=== PATIENT | female | born 1950 | race Caucasian/White ===

== ENCOUNTER → 2016-05-29 | Outpatient (CLI) | payer MEDICARE, BC ==
[2016-05-29 10:24] LABS: ALT 25 U/L (9-52); AST 20 U/L (14-36); Alkaline Phosphatase 74 U/L (38-126); Anion Gap 12 mmol/L; Blood Urea Nitrogen 18 mg/dL (7-17); Calcium 11.4 mg/dL (8.4-10.2); Carbon Dioxide 28 mmol/L (22-30); Chloride 102 mmol/L (98-107); Glucose 94 mg/dL (74-99); Non-African American GFR(MDRD) >60 (>60 ml/min/1.73 sqM); Potassium 5.2 mmol/L (3.5-5.1); Sodium 142 mmol/L (137-145); Total Bilirubin 0.7 mg/dL (0.2-1.3); Total Protein 7.3 g/dL (6.3-8.2)
== END | disposition home or self-care (01) ==
LOC: LABWHC1 09:11
PROVIDERS: ATTEND Internal Medicine Endocrinology, Diabetes & Metabolism
DX: E21.0 Primary hyperparathyroidism (principal)
CPT/HCPCS: 36415; 80053; 82306; 83970

== ENCOUNTER → 2016-07-17 | Outpatient (CLI) | payer MEDICARE, BC ==
--- NOTE | 2016-07-17 11:18 | US ---
EXAMINATION TYPE: US thyroid st tissue head/neck DATE OF EXAM: 07/17/2016 10:32 AM COMPARISON: 10/16/2010 thyroid ultrasound. CLINICAL HISTORY: E04.9 Goiter. GLAND SIZE: Right Lobe: 4.5 x 1.7 x 1.7 cm Overall Parenchyma: homogenous Left Lobe: 3.7 x 1.2 x 1.5 cm Overall Parenchyma: homogeneous Isthmus Thickness: 0.2 cm NODULES RIGHT: # of nodules measured on right: 1 1. 1.1 X 0.5 x 0.9 cm anechoic cystic nodule at the lower pole with well-defined margins; . This n odule is wider than tall and shows no intranodular vascularity. Prior size: 0.9 x 0.5 x 0.5 cm LEFT: # of nodules measured on left: 0 ISTHMUS: # of nodules measured in the isthmus: 0 Bilateral neck scanned, no evidence of lymphadenopathy. One nodule on right lower lobe as described above A 1.1 cm cystic nodule right thyroid lobe is stable. IMPRESSION: There is stable 1.1 cm cystic nodule right thyroid lobe. No new solid or cystic nodules are evident.
== END | disposition home or self-care (01) ==
LOC: RADUSWWP 10:14
PROVIDERS: ATTEND Internal Medicine Endocrinology, Diabetes & Metabolism
DX: E04.1 Nontoxic single thyroid nodule (principal)
CPT/HCPCS: 76536

== ENCOUNTER → 2017-01-25 | Outpatient (CLI) | payer MEDICARE, BC ==
--- NOTE | 2017-01-25 10:33 | MM ---
Reason for exam: additional evaluation requested from abnormal screening. Last mammogram was performed less than 1 month ago. History: Patient is postmenopausal. Family history of premenopausal breast cancer in paternal aunt at age 40 and premenopausal breast cancer in mother at age 40. Took hormonal contraceptives for 8 years beginning at age 20. Physical Findings: Nurse did not find any significant physical abnormalities on exam. MG 3D Work Up W/Cad LT LM, spot compression MLO, and spot compression CC view(s) were taken of the left breast. Prior study comparison: January 19, 2017, bilateral MG 3d screening mammo w/cad. January 14, 2016, bilateral MG 3d screening mammo w/cad. Finding improved. A 6 month follow up recommended. These results were verbally communicated with the patient and result sheet given to the patient on 01/25/17. ASSESSMENT: Probably benign, BI-RAD 3 RECOMMENDATION: Follow-up diagnostic mammogram of the left breast in 6 months.
--- NOTE | 2017-01-25 10:34 | USB ---
Reason for exam: additional evaluation requested from abnormal screening. History: Patient is postmenopausal. Family history of premenopausal breast cancer in paternal aunt at age 40 and premenopausal breast cancer in mother at age 40. Took hormonal contraceptives for 8 years beginning at age 20. US Breast Workup Limited LT Left breast ultrasound demonstrates no cystic or solid lesion seen. No ultrasound abnormality seen. Recommend additional views. These results were verbally communicated with the patient and result sheet given to the patient on 01/25/17. ASSESSMENT: Incomplete: need additional imaging evaluation, BI-RAD 0 RECOMMENDATION: Special view mammogram of the left breast.
== END | disposition home or self-care (01) ==
LOC: RADMAMWWP 08:55
PROVIDERS: ATTEND Obstetrics & Gynecology
DX: R92.8 Other abnormal and inconclusive findings on diagnostic imaging of breast (principal)
CPT/HCPCS: 76642; G0206; G0279

== ENCOUNTER → 2017-08-24 | Outpatient (CLI) | payer MEDICARE, BC ==
--- NOTE | 2017-08-24 10:44 | MM ---
Reason for exam: additional evaluation requested from prior study. Last mammogram was performed 7 months ago. History: Patient is postmenopausal. Family history of premenopausal breast cancer in paternal aunt at age 40 and premenopausal breast cancer in mother at age 40. Took hormonal contraceptives for 8 years beginning at age 20. Physical Findings: Nurse did not find any significant physical abnormalities on exam. MG 3D Diag Mammo W/Cad LT CC and MLO view(s) were taken of the left breast. Prior study comparison: January 25, 2017, left breast MG 3d work up w/cad LT. January 19, 2017, bilateral MG 3d screening mammo w/cad. No significant new findings when compared with previous films. These results were verbally communicated with the patient and result sheet given to the patient on 08/24/17. ASSESSMENT: Benign, BI-RAD 2 RECOMMENDATION: Return to routine screening mammogram schedule for both breasts. Back on schedule.
== END | disposition home or self-care (01) ==
LOC: RADMAMWWP 08:55
PROVIDERS: ATTEND Obstetrics & Gynecology
DX: R92.8 Other abnormal and inconclusive findings on diagnostic imaging of breast (principal)
CPT/HCPCS: 77065; G0279; 77061

== ENCOUNTER → 2018-01-25 | Outpatient (CLI) | payer MEDICARE, BC ==
[2018-01-25 09:51] VITALS: BP 134/85; PULSE 106; TEMP 98.6; BMI 31.4
--- NOTE | 2018-01-25 10:21 | P.HPOB ---
History of Present Illness H&P Date: 01/25/18 Chief Complaint: The patient is here for her routine gynecologic exam and mammogram. This is a 67-year-old with an LMP of 2003. The patient is without gynecologic complaints. Review of Systems She is getting 6 pounds over the last year. She denies respiratory, cardiac and G.I. problems. She denies maltreatment or problems with falling. : occasional urinary leakage if she coughs hard. Past Medical History Past Medical History: GERD/Reflux, Hyperlipidemia, Hypertension, Thyroid Disorder Additional Past Medical History / Comment(s): Hypercalcemia with parathyroid problems. History of osteopenia. 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 She did have a conization of the cervix in the late 70s. History of Any Multi-Drug Resistant Organisms: None Reported Past Surgical History: Orthopedic Surgery, Tonsillectomy Additional Past Surgical History / Comment(s): right knee, D&C. Cervical conization in the 1970s. Colonoscopy 2013(4th). Past Psychological History: No Psychological Hx Reported Smoking Status: Never smoker Past Alcohol Use History: Rare (10 per year) Past Drug Use History: None Reported Additional History: She has been since 1969 and is retired. She spends part of the winter in [place]. - Past Family History Father Family Medical History: Myocardial Infarction ([place]) Additional Family Medical History / Comment(s): The paternal aunt had uterine cancer. Mother Family Medical History: Cancer (Breast cancer and colon cancer) Medications and Allergies Home Medications Medication Instructions Recorded Confirmed Type Lisinopril-Hctz 10-12.5 mg 1 each PO DAILY 11/24/13 01/25/18 History [Zestoretic 10-12.5] Omeprazole [PriLOSEC] 20 mg PO AC-BID 11/24/13 01/25/18 History Pravastatin Sodium [Pravachol] 40 mg PO DIRECTED 11/24/13 01/25/18 History Calcium Carbonate/Vitamin D3 500 tab PO DAILY 01/25/18 01/25/18 History [Calcium 500-Vit D3 200 Tablet] Allergies Allergy/AdvReac Type Severity Reaction Status Date / Time Penicillins Allergy Unknown Rash/Hives Verified 01/25/18 09:46 Exam Vital Signs Temp Pulse BP 01/25/18 09:46 98.6 F 106 H 134/85 Intake and Output 01/24/18 01/25/18 01/25/18 22:59 06:59 14:59 Other: Weight 75.296 kg Height 5'1", weight 166 pounds, BMI 31.4. This is a well-developed well-nourished white female who is alert and oriented times 3 in no acute distress. HEENT: Within normal limits. NECK: Supple without mass or thyromegaly. CHEST AND LUNGS: Clear to auscultation. HEART: Regular rate and rhythm. BREASTS: Are without mass or discharge. AXILLARY EXAM: Negative for adenopathy. BACK: Negative for CVA tenderness. ABDOMEN: Soft, nontender, without palpable masses. PELVIC EXAM: Normal external genitalia with moderate atrophy. Vagina appear normal with moderate atrophy. The cervix is moderately atrophic and is fairly flush with the back of the vagina, consistent with her previous colonization. There is no unusual discharge. There is no evidence of prolapse. The uterus is midposition, nongravid size and nontender. There are no palpable adnexal masses or tenderness. There is a small amount of urethral mobility with cough and Valsalva. There is no significant cystocele. No urinary leakage was demonstrated. RECTAL EXAM: rectovaginal exam is negative for mass or tenderness and is negative for occult blood. EXTREMITIES: Nontender. IMPRESSION: 1. 67-year-old menopausal female with normal gynecologic exam. 2. History of osteopenia. PLAN: 1. Pap smear was deferred since she had a normal one last year. 2. Self breast awareness was discussed with the patient. 3. Screening mammogram will be done today. 4. Osteoporosis prevention was discussed. We will plan on repeating bone density testing in one year. 5. She did receive or flu shot this fall. 6. She will return in one year.
--- NOTE | 2018-01-25 13:05 | MM ---
Reason for exam: screening (asymptomatic). Last mammogram was performed 5 months ago. History: Patient is postmenopausal. Family history of premenopausal breast cancer in paternal aunt at age 40 and premenopausal breast cancer in mother at age 40. Took hormonal contraceptives for 8 years beginning at age 20. Physical Findings: A clinical breast exam by your physician is recommended on an annual basis and results should be correlated with mammographic findings. MG 3D Screening Mammo W/Cad Bilateral CC and MLO view(s) were taken. Prior study comparison: August 24, 2017, left breast MG 3d diag mammo w/cad LT. January 25, 2017, left breast MG 3d work up w/cad LT. The breast tissue is heterogeneously dense. This may lower the sensitivity of mammography. There are benign appearing round calcifications bilaterally. There is no discrete abnormality. ASSESSMENT: Benign, BI-RAD 2 RECOMMENDATION: Routine screening mammogram of both breasts in 1 year.
== END | disposition home or self-care (01) ==
LOC: WWCWWP 09:14
PROVIDERS: ATTEND Obstetrics & Gynecology
DX: Z12.31 Encounter for screening mammogram for malignant neoplasm of breast (principal)
CPT/HCPCS: 77063; 77067

== ENCOUNTER → 2018-10-18 | Outpatient (CLI) | payer MEDICARE, BC ==
--- NOTE | 2018-10-18 10:55 | US ---
EXAMINATION TYPE: US thyroid st tissue head/neck DATE OF EXAM: 10/18/2018 COMPARISON: 07/17/2016 CLINICAL HISTORY: E04.1 Nontoxic thyroid nodule. follow up exam GLAND SIZE: Right Lobe: 4.2 x 1.1 x 1.8 cm Overall Parenchyma: homogenous Left Lobe: 4.2 x 1.4 x 1.5 cm Overall Parenchyma: homogeneous Isthmus Thickness: 0.2 cm NODULES RIGHT: # of nodules measured on right: 1 1. 1.1 X 0.7 x 1.4 cm cystic nodule at the lower pole with well-defined margins; present with micro calcifications. This nodule is wider than tall and shows no intranodular vascularity. Prior size: 1.1 x 0.5 x 0.9 cm LEFT: # of nodules measured on left: 0 ISTHMUS: # of nodules measured in the isthmus: 0 Bilateral neck scanned, no evidence of lymphadenopathy. IMPRESSION: Minimal interval growth of a solitary right thyroid nodule measuring up to 1.4 cm. Continued surveill ance is recommended.
== END | disposition home or self-care (01) ==
LOC: RADUSWWP 10:10
PROVIDERS: ATTEND Internal Medicine Endocrinology, Diabetes & Metabolism
DX: E04.1 Nontoxic single thyroid nodule (principal)
CPT/HCPCS: 76536

== ENCOUNTER → 2019-02-15 | Outpatient (CLI) | payer MEDICARE, BC ==
[2019-02-15 11:30] VITALS: BP 166/98; PULSE 98; RESP 18; TEMP 98.5
--- NOTE | 2019-02-15 12:13 | P.HPOB ---
History of Present Illness H&P Date: 02/15/19 Chief Complaint: The patient is here for her routine gynecologic exam and ma mmogram. This is a 68-year-old with an LMP of 2003. The patient is without gynecologic complaints and denies any postmenopausal bleeding. Review of Systems She has gained about 3 pounds over the last year. She denies respiratory, cardiac and G.I. problems. She denies maltreatment or problems with falling. : she occasionally has small leakage with coughing and sneezing. Past Medical History Past Medical History: GERD/Reflux, Hyperlipidemia, Hypertension, Thyroid Disorder Additional Past Medical History / Comment(s): Hypercalcemia with parathyroid problems. History of osteopenia. 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 She did have a conization of the cervix in the late 70s. History of Any Multi-Drug Resistant Organisms: None Reported Past Surgical History: Orthopedic Surgery, Tonsillectomy Additional Past Surgical History / Comment(s): right knee, D&C. Cervical conization in the . Colonoscopy 2013(4th). Past Psychological History: No Psychological Hx Reported Smoking Status: Never smoker Past Alcohol Use History: Rare (8 per year) Past Drug Use History: None Reported Additional History: She has been since 1969 and is retired. She spends part of the winter in [place] staying with her daughter. - Past Family History Father Family Medical History: Myocardial Infarction ([place]) Additional Family Medical History / Comment(s): The paternal aunt had uterine cancer. Mother Family Medical History: Cancer Additional Family Medical History / Comment(s): Breast and colon cancer. Medications and Allergies Home Medications Medication Instructions Recorded Confirmed Type Lisinopril-Hctz 10-12.5 mg 30 mg PO DAILY 11/24/13 02/15/19 History [Zestoretic 10-12.5] Omeprazole [PriLOSEC] 20 mg PO DAILY 11/24/13 02/15/19 History Pravastatin Sodium [Pravachol] 40 mg PO DIRECTED 11/24/13 02/15/19 History Calcium Carbonate/Vitamin D3 500 tab PO HS 01/25/18 02/15/19 History [Calcium 500-Vit D3 200 Tablet] Allergies Allergy/AdvReac Type Severity Reaction Status Date / Time Penicillins Allergy Unknown Rash/Hives Verified 02/15/19 11:29 Exam Vital Signs Temp Pulse Resp BP Pulse Ox 02/15/19 11:24 98.5 F 98 18 166/98 95 Intake and Output 02/14/19 02/15/19 02/15/19 22:59 06:59 14:59 Other: Weight 76.657 kg Height 5 feet 1 inch, weight 169 pounds, BMI 31.9. This is a well-developed well-nourished white female who is alert and oriented times 3 in no acute distress. HEENT: Within normal limits. NECK: Supple without mass or thyromegaly. CHEST AND LUNGS: Clear to auscultation. HEART: Regular rate and rhythm. BREASTS: Are without mass or discharge. AXILLARY EXAM: Negative for adenopathy. BACK: Negative for CVA tenderness. ABDOMEN: Soft, nontender, without palpable masses. PELVIC EXAM: Normal external genitalia with mild to moderate atrophy. Cervix and vagina appear normal with moderate atrophy. The cervix is somewhat flush with the back of the vagina consistent with her previous conization. There is no unusual discharge. There is no evidence of prolapse. The uterus is midposition, nongravid size and nontender. There are no palpable adnexal masses or tenderness. RECTAL EXAM: Rectovaginal exam is negative for mass or tenderness and is negative for occult blood. EXTREMITIES: Nontender. IMPRESSION: 1. 68-year-old menopausal female with normal gynecologic exam. 2. History of osteopenia. 3. Elevated blood pressure with history of chronic hypertension on medication for this. PLAN: 1. Pap smear was performed. If this is negative, we will consider discontinuing it because of her low risk nature. 2. Self breast awareness was discussed with the patient. 3. Screening mammogram will be done today. 4. The patient was advised to check her own blood pressure at home since she has a blood pressure cuff. I have recommended that she do this daily and keep a log of her blood pressures. She was instructed to follow-up with Dr. Mccurdy for blood pressure elevations. 5. Osteoporosis prevention was discussed. I have stressed the importance of adequate calcium, vitamin D and regular exercise. Recommended amounts of calcium and vitamin D were also discussed. I have recommended repeating bone de nsity testing since her last one was more than 2 years ago. The order slip was given to the patient for this. 6. The patient was advised to return in 1-2 years for her well woman examination.
--- NOTE | 2019-02-17 11:45 | MM ---
Reason for exam: screening (asymptomatic). Last mammogram was performed 1 year and 1 month ago. History: Patient is postmenopausal. Family history of premenopausal breast cancer in paternal aunt at age 40 and premenopausal breast cancer in mother at age 40. Took hormonal contraceptives for 8 years beginning at age 20. Physical Findings: A clinical breast exam by your physician is recommended on an annual basis and results should be correlated with mammographic findings. MG 3D Screening Mammo W/Cad Bilateral CC and MLO view(s) were taken. XCCL view(s) were taken of the left breast. Prior study comparison: January 25, 2018, bilateral MG 3d screening mammo w/cad. August 24, 2017, left breast MG 3d diag mammo w/cad LT. The breast tissue is heterogeneously dense. This may lower the sensitivity of mammography. There is no discrete abnormality. No significant changes when compared with prior studies. ASSESSMENT: Negative, BI-RAD 1 RECOMMENDATION: Routine screening mammogram of both breasts in 1 year.
--- NOTE | 2019-02-22 09:20 | P.PN ---
Progress Note - Text Progress Note Date: 02/22/19 OUTPATIENT FOLLOW-UP NOTE TEST(S)/RESULTS: test results from 02/15/2019 include negative Pap smear and benign mammogram. METHOD OF NOTIFICATION: the patient was notified by phone. PATIENT COMMENTS: the patient is happy to hear these results. DIAGNOSIS: negative Pap smear and benign mammogram. DISCUSSION: She was reminded to have a bone density test done and she was given a slip for this. PLAN: The patient was advised to return in 1-2 years for her well woman examination.
== END | disposition home or self-care (01) ==
LOC: WWCWWP 11:12
PROVIDERS: ATTEND Obstetrics & Gynecology
DX: Z12.31 Encounter for screening mammogram for malignant neoplasm of breast (principal)
CPT/HCPCS: 77063; 77067

== ENCOUNTER → 2019-05-29 | Outpatient (CLI) | payer MEDICARE, BC ==
--- NOTE | 2019-05-29 12:02 | US ---
EXAMINATION TYPE: US thyroid st tissue head/neck DATE OF EXAM: 05/29/2019 COMPARISON: US 2019 CLINICAL HISTORY: E04.1 NONTOXIC SINGLE THYROID NODULE. Follow up thyroid nodule GLAND SIZE: Right Lobe: 4.4 x 1.5 x 1.6 cm Overall Parenchyma: homogenous Left Lobe: 4.2 x 1.2 x 1.4 cm Overall Parenchyma: homogeneous Isthmus Thickness: 0.2 cm NODULES RIGHT: # of nodules measured on right: 0 1. cystic nodule seen on previous ultrasound not seen on today's exam LEFT: # of nodules measured on left: 1 1. 0.5 X 0.3 x 0.4 cm hypoechoic solid nodule at the lateral mid pole with well-defined margins. Th is nodule is wider than tall and shows intranodular vascularity. Prior size: no previous ISTHMUS: # of nodules measured in the isthmus: 0 Bilateral neck scanned, no evidence of lymphadenopathy. IMPRESSION: The previously seen right thyroid nodule is not identified on today's exam however a new left thyroid nodule is seen that is subcentimeter and too small for fine-needle aspiration at this ti or. Follow-up thyroid ultrasound is recommended in 12 months.
== END | disposition home or self-care (01) ==
LOC: RADUSWWP 10:52
PROVIDERS: ATTEND Internal Medicine Endocrinology, Diabetes & Metabolism
DX: E04.1 Nontoxic single thyroid nodule (principal)
CPT/HCPCS: 76536

== ENCOUNTER → 2020-08-28 | Outpatient (CLI) | payer MEDICARE, BC ==
[2020-08-28 08:17] VITALS: BP 171/115; PULSE 81; RESP 18; TEMP 98.1
--- NOTE | 2020-08-28 09:00 | P.HPOB ---
History of Present Illness H&P Date: 08/28/20 Chief Complaint: The patient is here for her routine gynecologic exam. This is a 69-year-old 012 with an LMP of 2003. The patient is without gynecologic complaints. Review of Systems She has lost about 5 pounds over the past year. She denies respiratory, cardiac and G.I. problems. She denies maltreatment or problems with falling. : she denies any significant problems with urinary leakage. Past Medical History Past Medical History: GERD/Reflux, Hyperlipidemia, Hypertension, Thyroid Disorder Additional Past Medical History / Comment(s): Hypercalcemia with parathyroid problems. History of osteopenia. 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 She did have a conization of the cervix in the late 70s. History of Any Multi-Drug Resistant Organisms: None Reported Past Surgical History: Orthopedic Surgery, Tonsillectomy Additional Past Surgical History / Comment(s): right knee, D&C. Cervical conization in the . Colonoscopy 2013(4th). Past Psychological History: No Psychological Hx Reported Smoking Status: Never smoker Past Alcohol Use History: Occasional (3 per month) Past Drug Use History: None Reported Additional History: She has been since 1969 and is retired. She goes to [place] each year to visit her daughter. - Past Family History Father Family Medical History: Myocardial Infarction ([place]) Additional Family Medical History / Comment(s): The paternal aunt had uterine cancer. Mother Family Medical History: Cancer Additional Family Medical History / Comment(s): Breast and colon cancer. Medications and Allergies Home Medications Medication Instructions Recorded Confirmed Type Lisinopril-Hctz 10-12.5 mg 40 mg PO DAILY 11/24/13 08/28/20 History [Zestoretic 10-12.5] Omeprazole [PriLOSEC] 20 mg PO DAILY 11/24/13 08/28/20 History Pravastatin Sodium [Pravachol] 40 mg PO HS 11/24/13 08/28/20 History Calcium Carbonate/Vitamin D3 500 tab PO HS 01/25/18 08/28/20 History [Calcium 500-Vit D3 200 Tablet] Metoprolol Succinate [Toprol XL] 25 mg PO DAILY 08/28/20 08/28/20 History Allergies Allergy/AdvReac Type Severity Reaction Status Date / Time Penicillins Allergy Unknown Rash/Hives Verified 08/28/20 08:07 Exam Vital Signs Temp Pulse Resp BP Pulse Ox 08/28/20 08:10 98.1 F 81 18 171/115 96 Intake and Output 08/27/20 08/28/20 08/28/20 22:59 06:59 14:59 Other: Weight 74.389 kg Repeat blood pressure was 162/88 in the left arm. Height 5 feet 2 inches, weight 164 pounds, BMI 30.0. This is a well-developed well-nourished white female who is alert and oriented times 3 in no acute distress. HEENT: Within normal limits. NECK: Supple without mass or thyromegaly. CHEST AND LUNGS: Clear to auscultation. HEART: Regular rate and rhythm. BREASTS: Are without mass or discharge. AXILLARY EXAM: Negative for adenopathy. BACK: Negative for CVA tenderness. ABDOMEN: Soft, nontender, without palpable masses. PELVIC EXAM: Normal external genitalia with mild to moderate atrophy. Cervix and vagina appear normal with mild to moderate atrophy. Cervix is atrophic and fairly flush with the vaginal wall consistent with her previous conization. There is no unusual discharge. There is no evidence of prolapse. The uterus is midposition, nongravid size and nontender. There are no palpable adnexal masses or tenderness. RECTAL EXAM: Rectovaginal exam is negative for mass or tenderness and is negative for occult blood. EXTREMITIES: Nontender. IMPRESSION: 1. 69-year-old menopausal female with normal gynecologic exam. 2. History of osteopenia. 3. Elevated blood pressure with history of chronic hypertension. The patient has not taken her blood pressure medicine this morning. PLAN: 1. Pap smears have been discontinued. She has not had cervical dysplasia within the last 20 years and has been adequately screened. 2. Self breast awareness was discussed with the patient. 3. Screening mammogram is scheduled for 09/11/2020 and the order slip was given to the patient for this. 4. Osteoporosis prevention was discussed. I have stressed the importance of adequate calcium, vitamin D and regular exercise. Recommended amounts of calcium and vitamin D were also discussed. Her last bone density test was done in 2016 and she is due for this. She is scheduled for a bone density test on 0 09/11/2020. The order slip was given to the patient for this. 5. I have recommended that she take her blood pressure medication as soon as possible today. I have recommended that she follow-up with Dr. Mccurdy regarding blood pressure elevations and I have also recommended that she check her own blood pressure at home on a regular basis since she does have a blood pressure cuff. 6. She has completed her Covid vaccination and did receive her flu shot last fall. 7. She was advised to return in one year for her annual well woman exam.
== END ==
LOC: WWCWWP 07:59
PROVIDERS: ATTEND Obstetrics & Gynecology
DX: Z01.419 Encounter for gynecological examination (general) (routine) without abnormal findings (principal); Z78.0 Asymptomatic menopausal state; Z87.39 Personal history of other diseases of the musculoskeletal system and connective tissue; I10 Essential (primary) hypertension; E78.5 Hyperlipidemia, unspecified; K21.9 Gastro-esophageal reflux disease without esophagitis; Z88.0 Allergy status to penicillin; Z79.899 Other long term (current) drug therapy

== ENCOUNTER → 2020-09-11 | Outpatient (CLI) | payer MEDICARE, BC ==
--- NOTE | 2020-09-12 09:14 | BD ---
EXAMINATION TYPE: Axial Bone Density DATE OF EXAM: 09/11/2020 COMPARISON: NONE CLINICAL HISTORY: Height: 62 Weight: 161.5 FRAX RISK QUESTIONS: Alcohol (3 or more units per day): no Family History (Parent hip fracture): no Glucocorticoids (More than 3mos): no (Ex: prednisone, prednisolone, methylprednisolone, dexamethasone, and hydrocortisone). History of Fracture in Adulthood: no Secondary Osteoporosis: 1. Type 1 Diabetes: no 2. Hyperthyroidism: no 3. Menopause before 45: no 4. Malnutrition: no 5. Chronic liver disease: no Rheumatoid Arthritis: no Current Tobacco Use: no RISK FACTORS HISTORY OF: Surgery to Spine/Hip(right/left)/Wrist (right/left): no Family History of Osteoporosis: no Active: yes Diet low in dairy products/other sources of calcium: no Postmenopausal woman: age 53 Lost more than 2 inches in height since high school: no MEDICATIONS: blood pressure meds, cholesterol meds, omeprazole Additional History: EXAM MEASUREMENTS: Bone mineral densitometry was performed using the [employer]. Bone mineral density as measured about the Lumbar spine is: ----- L1-L4(G/cm2): 1.192 T Score Values are as follows: ----- L2: -0.5 ----- L3: 0.4 ----- L4: 0.6 ----- L1-L4: 0.1 Bone mineral density has: decreased -4.5 % since study of: 01.19.2017 Bone mineral density about the R hip (g/cm2): 0.805 Bone mineral density about the L hip (g/cm2): 0.801 T Score values are as follows: -----R Neck: -1.7 -----L Neck: 1.7 -----R Total: -1.6 -----L Total: -1.6 Bone mineral density has: decreased -3.0 % since study of: 01.19.2017 IMPRESSION: Osteopenia. NOTE: T-SCORE=SD OF THE YOUNG ADULT MEAN.
--- NOTE | 2020-09-12 10:15 | MM ---
Reason for exam: screening (asymptomatic). Last mammogram was performed 1 year and 7 months ago. History: Patient is postmenopausal. Family history of premenopausal breast cancer in paternal aunt at age 40 and premenopausal breast cancer in mother at age 40. Took hormonal contraceptives for 8 years beginning at age 20. Physical Findings: A clinical breast exam by your physician is recommended on an annual basis and results should be correlated with mammographic findings. MG 3D Screening Mammo W/Cad Bilateral CC and MLO view(s) were taken. Prior study comparison: February 15, 2019, bilateral MG 3d screening mammo w/cad. January 25, 2018, bilateral MG 3d screening mammo w/cad. There are scattered fibroglandular densities. ASSESSMENT: Negative, BI-RAD 1 RECOMMENDATION: Routine screening mammogram of both breasts in 1 year.
== END | disposition home or self-care (01) ==
LOC: RADMAMWWP 07:05
PROVIDERS: ATTEND Obstetrics & Gynecology
DX: Z12.31 Encounter for screening mammogram for malignant neoplasm of breast (principal); Z13.820 Encounter for screening for osteoporosis; M85.89 Other specified disorders of bone density and structure, multiple sites; Z78.0 Asymptomatic menopausal state; Z80.3 Family history of malignant neoplasm of breast
CPT/HCPCS: 77063; 77067; 77080

== ENCOUNTER → 2021-09-16 | Outpatient (CLI) | payer MEDICARE, BC ==
[2021-09-16 12:50] VITALS: BP 144/88; PULSE 88; RESP 17; TEMP 98.9
--- NOTE | 2021-09-16 13:25 | P.HPOB ---
History of Present Illness H&P Date: 09/16/21 Chief Complaint: The patient is here for her routine gynecologic exam and ma mmogram. This is a 70-year-old 012 with an LMP of 2003. Is without gynecologic complaints and denies any postmenopausal bleeding. Review of Systems The patient has gained 5 pounds over the last year. She denies respiratory, cardiac, or G.I. problems. Past Medical History Past Medical History: GERD/Reflux, Hyperlipidemia, Hypertension, Thyroid Disorder Additional Past Medical History / Comment(s): Hypercalcemia with parathyroid problems. History of osteopenia. 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 She did have a conization of the cervix in the late 70s. History of Any Multi-Drug Resistant Organisms: None Reported Past Surgical History: Orthopedic Surgery, Tonsillectomy Additional Past Surgical History / Comment(s): right knee, D&C. Cervical conization in the . Colonoscopy 2020(next after 5yr). Past Psychological History: No Psychological Hx Reported Smoking Status: Never smoker Past Alcohol Use History: Rare (6 per year) Past Drug Use History: None Reported Additional History: She has been since 1969 and is retired. She goes to [place] each year to visit her daughter. - Past Family History Father Family Medical History: Myocardial Infarction ([place]) Additional Family Medical History / Comment(s): The paternal aunt had uterine cancer. Mother Family Medical History: Cancer Additional Family Medical History / Comment(s): Breast and colon cancer. Medications and Allergies Home Medications Medication Instructions Recorded Confirmed Type Lisinopril-Hctz 10-12.5 mg 40 mg PO DAILY 11/24/13 09/16/21 History [Zestoretic 10-12.5] Omeprazole [PriLOSEC] 20 mg PO DAILY 11/24/13 09/16/21 History Pravastatin Sodium [Pravachol] 40 mg PO HS 11/24/13 09/16/21 History Calcium Carbonate/Vitamin D3 500 tab PO HS 01/25/18 09/16/21 History [Calcium 500-Vit D3 200 Tablet] Metoprolol Succinate [Toprol XL] 25 mg PO DAILY 08/28/20 09/16/21 History Chlorthalidone 25 mg PO DAILY 09/16/21 09/16/21 History Allergies Allergy/AdvReac Type Severity Reaction Status Date / Time Penicillins Allergy Unknown Rash/Hives Verified 09/16/21 12:45 Exam Vital Signs Temp Pulse Resp BP Pulse Ox 09/16/21 12:46 98.9 F 88 17 144/88 97 Intake and Output 09/15/21 09/16/21 09/16/21 22:59 06:59 14:59 Other: Weight 76.657 kg Height 5 foot 1 inch, weight 169 pounds, BMI 31.9. This is a well-developed well-nourished white female who is alert and oriented times 3 in no acute distress. HEENT: Within normal limits. NECK: Supple without mass or thyromegaly. CHEST AND LUNGS: Clear to auscultation. HEART: Regular rate and rhythm. BREASTS: Are without mass or discharge. AXILLARY EXAM: Negative for adenopathy. BACK: Negative for CVA tenderness. ABDOMEN: Soft, nontender, without palpable masses. PELVIC EXAM: Normal external genitalia with mild to moderate atrophy. Cervix and vagina appear normal with mild to moderate atrophy. The cervix is somewhat flush with the back of the vagina consistent with her previous conization. There is no unusual discharge. There is no evidence of prolapse. The uterus is midposition, nongravid size and nontender. There are no palpable adnexal masses or tenderness. RECTAL EXAM: Rectovaginal exam is negative for mass or tenderness and is negative for occult blood. EXTREMITIES: Nontender. IMPRESSION: 1. 70-year-old menopausal female with normal gynecologic exam. 2. History of osteopenia. 3. History of hypercalcemia related to parathyroid problems. PLAN: 1. Pap smears have been discontinued. 2. Self breast awareness was discussed with the patient. We have also discussed symptoms associated with inflammatory breast cancer. 3. Screening mammogram will be done today. 4. Osteoporosis prevention was discussed. I have stressed the importance of adequate calcium, vitamin D and regular exercise. Recommended amounts of calcium and vitamin D were also discussed. I have recommended that she speak with her master control technician regarding calcium intake since she does have parathyroid problems. She states she has not seen her master control technician for a couple of years. I stressed the importance of establishing with the master control technician. We will plan on repeating bone density testing in 1 year. 5. She has completed her Covid vaccination series. She she did receive a blister. 6. She was advised to return in one year for her annual well woman exam.
== END ==
LOC: WWCWWP 12:41
PROVIDERS: ATTEND Obstetrics & Gynecology
DX: Z01.419 Encounter for gynecological examination (general) (routine) without abnormal findings (principal); Z12.31 Encounter for screening mammogram for malignant neoplasm of breast; Z78.0 Asymptomatic menopausal state; Z86.39 Personal history of other endocrine, nutritional and metabolic disease; Z87.39 Personal history of other diseases of the musculoskeletal system and connective tissue; E78.5 Hyperlipidemia, unspecified; I10 Essential (primary) hypertension; K21.9 Gastro-esophageal reflux disease without esophagitis; Z79.899 Other long term (current) drug therapy; Z88.0 Allergy status to penicillin
CPT/HCPCS: 77063; 77067

== ENCOUNTER → 2022-09-23 | Outpatient (CLI) | payer MEDICARE, BC ==
[2022-09-23 09:29] VITALS: BP 134/87; PULSE 106; RESP 17; TEMP 97.8
--- NOTE | 2022-09-23 10:00 | P.HPOB ---
History of Present Illness H&P Date: 09/23/22 Chief Complaint: The patient is here for her routine gynecologic exam and ma mmogram. This is a 71-year-old 012 with an LMP of 2003. The patient is without gynecologic complaints. Review of Systems The patient has lost 5 pounds over the last year. She denies respiratory, cardiac, or G.I. problems. Past Medical History Past Medical History: GERD/Reflux, Hyperlipidemia, Hypertension, Thyroid Disorde r Additional Past Medical History / Comment(s): Hypercalcemia with parathyroid problems. History of osteopenia. 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 She did have a conization of the cervix in the late 70s. History of Any Multi-Drug Resistant Organisms: None Reported Past Surgical History: Orthopedic Surgery, Tonsillectomy Additional Past Surgical History / Comment(s): right knee, D&C. Cervical conization in the . Colonoscopy 2020(next after 5yr). Past Psychological History: No Psychological Hx Reported Smoking Status: Never smoker Past Alcohol Use History: Rare (12 per year.) Past Drug Use History: None Reported Additional History: She is been since 1969 and is retired. She regularly visits [place] to visit her daughter. - Past Family History Father Family Medical History: Myocardial Infarction ([place]) Additional Family Medical History / Comment(s): The paternal aunt had uterine cancer. Mother Family Medical History: Cancer Additional Family Medical History / Comment(s): Breast and colon cancer. Brother(s) Family Medical History: Cancer Additional Family Medical History / Comment(s): Lung cancer. Medications and Allergies Home Medications Medication Instructions Recorded Confirmed Type Lisinopril-Hctz 10-12.5 mg 40 mg PO DAILY 11/24/13 09/16/21 History [Zestoretic 10-12.5] Omeprazole [PriLOSEC] 20 mg PO DAILY 11/24/13 09/16/21 History Calcium Carbonate/Vitamin D3 500 tab PO HS 01/25/18 09/23/22 History [Calcium 500-Vit D3 200 Tablet] Chlorthalidone 25 mg PO DAILY 09/16/21 09/16/21 History Allergies Allergy/AdvReac Type Severity Reaction Status Date / Time Penicillins Allergy Unknown Rash/Hives Verified 09/23/22 09:25 Exam Vital Signs Temp Pulse Resp BP Pulse Ox 09/23/22 09:26 97.8 F 106 H 17 134/87 97 Intake and Output 09/22/22 09/23/22 09/23/22 22:59 06:59 14:59 Other: Weight 74.389 kg Height 5 foot 1 inch, weight 164 pounds, BMI 31.0 This is a well-developed well-nourished white female who is alert and oriented times 3 in no acute distress. HEENT: Within normal limits. NECK: Supple without mass or thyromegaly. CHEST AND LUNGS: Clear to auscultation. HEART: Regular rate and rhythm. BREASTS: Are without mass or discharge. AXILLARY EXAM: Negative for adenopathy. BACK: Negative for CVA tenderness. ABDOMEN: Soft, nontender, without palpable masses. PELVIC EXAM: Normal external genitalia with mild to moderate atrophy. Cervix and vagina appear normal with mild to moderate atrophy. The cervix is fairly flush to the back of the vagina consistent with her previous conization many years ago. There is no unusual discharge. There is no evidence of prolapse. The uterus is midposition, nongravid size and nontender. There are no palpable adnexal masses or tenderness. RECTAL EXAM: Rectovaginal exam is negative for mass or tenderness and is negative for occult blood. EXTREMITIES: Nontender. IMPRESSION: 1. 71-year-old menopausal female with normal gynecologic exam. 2. History of osteopenia. 3. History of hypercalcemia related to parathyroid problems. PLAN: 1. Pap smears have been discontinued. 2. Self breast awareness was discussed with the patient. We have also discussed symptoms associated with inflammatory breast cancer. 3. Screening mammogram will be done today. 4. Osteoporosis prevention was discussed. I have stressed the importance of adequate calcium, vitamin D and regular exercise. Recommended amounts of calcium and vitamin D were also discussed. Bone density testing will be repeated today. Her last one was on 09/11/2020. 5. She was advised to return in one year for her annual well woman exam.
--- NOTE | 2022-09-23 13:10 | BD ---
EXAMINATION TYPE: Axial Bone Density DATE OF EXAM: 09/23/2022 CLINICAL HISTORY: 71 years old Female. ICD-10 CODE: Z78.0 Post menopausal without HRT Height: 61.5 Weight: 161.3 FRAX RISK QUESTIONS: Alcohol (3 or more units per day): no Family History (Parent hip fracture): no Glucocorticoids (More than 3mos): no History of Fracture in Adulthood: no Secondary Osteoporosis: 1. Type 1 Diabetes: no 2. Hyperthyroidism: no 3. Menopause before 45: no 4. Malnutrition: no 5. Chronic liver disease: no Rheumatoid Arthritis: no Current Tobacco Use: no RISK FACTORS HISTORY OF: Hip Fracture (Right/Left): no Spine Fracture: no History of Wrist Fracture: no Surgery to Spine/Hip(right/left)/Wrist (right/left): no Family History of Osteoporosis: no Active: no Diet low in dairy products/other sources of calcium: no Postmenopausal woman: yes Take estrogen and/or progesterone medications: no Lost more than 2 inches in height since high school: no Frequent falls: no Poor Health: no Hyperparathyroidism: no Adrenal Insufficiency: no MEDICATIONS: Prednisone or other steroids: no Thyroid Medications: no Osteoporosis Medications: no Additional Medications: Lisinopril, Omeprazole, Calcium, Vit D Additional History: Pt states that she has never had any correction problems with lt hip. EXAM MEASUREMENTS: Bone mineral densitometry was performed using the [employer] System. Bone mineral density as measured about the Lumbar spine is: ----- L1-L4(G/cm2): 1.186 T Score Values are as follows: ----- L1: -0.7 ----- L2: -0.3 ----- L3: -0.2 ----- L4: 1.1 ----- L1-L4: 0.1 Z Score Values are as follows: ----- L1: 0.8 ----- L2: 1.1 ----- L3: 1.2 ----- L4: 2.5 ----- L1-L4: 1.5 Bone mineral density has: decreased -0.5 % since study of: 09/11/2020 Bone mineral density about the R hip (g/cm2): 0.943 Bone mineral density about the L hip (g/cm2)0.830 T Score values are as follows: -----R Neck: -0.8 -----L Neck: -1.4 -----R Total: 00.5 -----L Total: -1.4 Z Score values are as follows: -----R Neck: 0.8 -----L Neck: 0.2 -----R Total: 0.9 -----L Total: 0.0 Bone mineral density has: increased 17.0 % since study of: 09/11/2020 FRAX%s: The graph provided illustrates a 10.1% chance for a major osteoporotic fx and a 1.6% chance f or the hips probability for fx in 10 years time. IMPRESSION: Osteopenia (T Score between -2.5 and -1). There is slightly increased risk of fracture and the patient may be considered for treatment. Re-Screen 2-5 years. NOTE: T-SCORE=SD OF THE YOUNG ADULT MEAN.
--- NOTE | 2022-09-24 08:28 | MM ---
Reason for Exam: Screening (asymptomatic). Last mammogram was performed 1 year(s) and 1 month(s) ago. Patient History: Menarche at age 11. First Full-Term at age 20. Postmenopausal. Hormonal Contraceptives for 8 years from age 20 until age 28. Paternal aunt had breast cancer, age 40. Mother had breast cancer, age 40. Risk Values: Kimmy 5 year model risk: 3.4%. NCI Lifetime model risk: 8.6%. Prior Study Comparison: 02/15/2019 Bilateral Screening Mammogram, [facility]. 09/11/2020 Bilateral Screening Mammogram, [facility]. 09/16/2021 Bilateral MG 3D screening mammo w/cad, [facility]. Tissue Density: There are scattered fibroglandular densities. Findings: Analyzed By CAD. There is no suspicious group of microcalcifications or new suspicious mass in either breast. Overall Assessment: Negative, BI-RAD 1 Management: Screening Mammogram of both breasts in [address] [facility] will attempt to contact patient to return for supplemental views and ultrasound if indicated. Patient should continue monthly self-breast exams. A clinical breast exam by your physician is recommended on an annual basis. This exam should not preclude additional follow-up of suspicious palpable abnormalities. Note on Kimmy scores and lifetime risk: 1. A Kimmy score greater than 3% is considered moderate risk. If this is the case, consider specialist referral to assess eligibility for a risk reducing agent. 2. If overall lifetime risk for the development of breast cancer is 20% or higher, the patient may qualify for future screening with alternating mammogram and breast MRI. Electronically signed and approved by: Carlyle Devi DO
--- NOTE | 2022-09-29 17:25 | P.PN ---
Progress Note - Text Progress Note Date: 09/29/22 OUTPATIENT FOLLOW-UP NOTE TEST(S)/RESULTS: Test results from 09/23/2022 include benign mammogram and on density test showing osteopenia. METHOD OF NOTIFICATION: The patient was notified by phone on 09/29/2022. PATIENT COMMENTS: DIAGNOSIS: Benign mammogram and osteopenia. DISCUSSION: PLAN: We will plan on repeating the bone density test in about 2-3 years. She was advised to return in one year for her annual well woman exam.
== END ==
LOC: WWCWWP 09:10
PROVIDERS: ATTEND Obstetrics & Gynecology
DX: Z12.31 Encounter for screening mammogram for malignant neoplasm of breast (principal); K21.9 Gastro-esophageal reflux disease without esophagitis; E78.5 Hyperlipidemia, unspecified; I10 Essential (primary) hypertension; E07.9 Disorder of thyroid, unspecified; E83.52 Hypercalcemia; M85.80 Other specified disorders of bone density and structure, unspecified site; Z80.3 Family history of malignant neoplasm of breast; Z79.899 Other long term (current) drug therapy; Z88.0 Allergy status to penicillin; Z78.0 Asymptomatic menopausal state
CPT/HCPCS: 77063; 77067; 77080

== ENCOUNTER → 2023-09-28 | Outpatient (CLI) | payer MEDICARE, BC ==
[2023-09-28 09:41] VITALS: BP 135/83; PULSE 101; RESP 16; TEMP 98.3
--- NOTE | 2023-09-28 10:12 | P.HPOB ---
History of Present Illness H&P Date: 09/28/23 Chief Complaint: The patient is here for her routine gynecologic exam and ma mmogram. This is a 72-year-old -0-1-2 with an LMP of 2003. The patient is without gynecologic complaints and denies any postmenopausal bleeding. Review of Systems Her weight has been stable over the past year. Respiratory: She has been having episodes of a dry cough over the past several months. She denies cardiac or GI problems. Past Medical History Past Medical History: GERD/Reflux, Hyperlipidemia, Hypertension, Thyroid Disorder Additional Past Medical History / Comment(s): Hypercalcemia with parathyroid problems. History of osteopenia. 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 She did have a conization of the cervix in the late s. History of Any Multi-Drug Resistant Organisms: None Reported Past Surgical History: Orthopedic Surgery, Tonsillectomy Additional Past Surgical History / Comment(s): right knee, D&C. Cervical conization in the . Colonoscopy 2020(next after 5yr). Past Psychological History: No Psychological Hx Reported Smoking Status: Never smoker Past Alcohol Use History: Occasional (1 drink per month.) Past Drug Use History: None Reported Additional History: She has been since 1969 and is retired. She regularly visits her daughter in [place]. - Past Family History Father Family Medical History: Myocardial Infarction ([place]) Additional Family Medical History / Comment(s): The paternal aunt had uterine cancer. Mother Family Medical History: Cancer Additional Family Medical History / Comment(s): Breast and colon cancer. Brother(s) Family Medical History: Cancer Additional Family Medical History / Comment(s): Lung cancer. Medications and Allergies Home Medications Medication Instructions Recorded Confirmed Type Lisinopril-Hctz 10-12.5 mg 40 mg PO DAILY 11/24/13 09/28/23 History [Zestoretic 10-12.5] Omeprazole [PriLOSEC] 20 mg PO DAILY 11/24/13 09/28/23 History Calcium Carbonate/Vitamin D3 500 tab PO HS 01/25/18 09/28/23 History [Calcium 500-Vit D3 200 Tablet] Chlorthalidone 25 mg PO DAILY 09/16/21 09/28/23 History Allergies Allergy/AdvReac Type Severity Reaction Status Date / Time Penicillins Allergy Unknown Rash/Hives Verified 09/28/23 09:38 Exam Vital Signs Temp Pulse Resp BP Pulse Ox 09/28/23 09:39 98.3 F 101 H 16 135/83 97 Intake and Output 09/27/23 09/28/23 09/28/23 22:59 06:59 14:59 Other: Weight 73.936 kg Height 5 feet 1 inch, weight 163 pounds, BMI 30.8. This is a well-developed well-nourished white female who is alert and oriented times 3 in no acute distress. HEENT: Within normal limits. NECK: Supple without mass or thyromegaly. CHEST AND LUNGS: Clear to auscultation. HEART: Regular rate and rhythm. BREASTS: Are without mass or discharge. AXILLARY EXAM: Negative for adenopathy. BACK: Negative for CVA tenderness. ABDOMEN: Soft, nontender, without palpable masses. PELVIC EXAM: Normal external genitalia with mild atrophy. Cervix and vagina appear normal with mild to moderate atrophy. The cervix is somewhat flush with the back of the vagina with some posterior adhesions consistent with her previous conization and previous exams. There is no unusual discharge. There is no evidence of prolapse. The uterus is midposition, nongravid size and nontender. There are no palpable adnexal masses or tenderness. RECTAL EXAM: Rectovaginal exam is negative for mass or tenderness and is negative for occult blood. EXTREMITIES: Nontender. IMPRESSION: 1. 72-year-old menopausal female with normal gynecologic exam. 2. History of osteopenia. PLAN: 1. Pap smears have been discontinued. 2. Self breast awareness was discussed with the patient. We have also discussed symptoms associated with inflammatory breast cancer. 3. Screening mammogram will be done today. 4. PHQ-2 questionaire was given and she scores 0. This is a negative screen for depression. 5. The patient states she is going to try [id number] allergy medications to see if this helps with her cough. I recommended that she see her PCP regarding the cough if it is not improving. 6. Osteoporosis prevention was discussed. I have stressed the importance of adequate calcium, vitamin D and regular exercise. Recommended amounts of dana cium and vitamin D were also discussed. We will plan on repeating the bone density test in 1 year. 7. She was advised to return in one year for her annual well woman exam.
== END ==
LOC: WWCWWP 09:17
PROVIDERS: ATTEND Obstetrics & Gynecology
DX: Z12.31 Encounter for screening mammogram for malignant neoplasm of breast (principal); M85.80 Other specified disorders of bone density and structure, unspecified site; Z78.0 Asymptomatic menopausal state; Z88.0 Allergy status to penicillin; Z80.3 Family history of malignant neoplasm of breast
CPT/HCPCS: 77063; 77067

== ENCOUNTER → 2023-10-08 | Outpatient (CLI) | payer MEDICARE, BC ==
--- NOTE | 2023-10-08 10:51 | MM ---
Reason for Exam: Additional evaluation requested from abnormal screening. Last screening mammogram was performed less than 1 month ago. Patient History: Menarche at age 11. First Full-Term at age 20. Postmenopausal. Patient has history of breast feeding. Hormonal Contraceptives for 8 years from age 20 until age 28. Paternal aunt had breast cancer, age 40. Mother had breast cancer, age 40. Risk Values: Kimmy 5 year model risk: 3.4%. NCI Lifetime model risk: 8.2%. Prior Study Comparison: 09/16/2021 Bilateral MG 3D screening mammo w/cad, [facility]. 09/23/2022 Bilateral MG 3D screening mammo w/cad, [facility]. 09/28/2023 Bilateral MG 3D screening mammo w/cad, [facility]. Tissue Density: Left: There are scattered areas of fibroglandular density. Findings: Analyzed By CAD. The questioned area of asymmetric density posterior outer aspect of the left breast appears to disperse on additional views suggesting an island of fibroglandular tissue. Given the appearance on screening exam, precautionary 6 month follow-up recommended. Overall Assessment: Probably benign, BI-RAD 3 Management: Diagnostic Mammogram of the left breast in 6 months. See note below in regards to patient's increased 5 year Kimmy score. Results were given to the patient verbally at the time of exam. Patient should continue monthly self-breast exams. A clinical breast exam by your physician is recommended on an annual basis. This exam should not preclude additional follow-up of suspicious palpable abnormalities. Note on Kimmy scores and lifetime risk: 1. A Kimmy score greater than 3% is considered moderate risk. If this is the case, consider specialist referral to assess eligibility for a risk reducing agent. 2. If overall lifetime risk for the development of breast cancer is 20% or higher, the patient may qualify for future screening with alternating mammogram and breast MRI. Electronically signed and approved by: Genesis Rey M.D. Radiologist
== END | disposition home or self-care (01) ==
LOC: RADMAMWWP 10:08
PROVIDERS: ATTEND Obstetrics & Gynecology
DX: R92.8 Other abnormal and inconclusive findings on diagnostic imaging of breast (principal); R92.322 Mammographic fibroglandular density, left breast; Z78.0 Asymptomatic menopausal state; Z80.3 Family history of malignant neoplasm of breast
CPT/HCPCS: 77065; G0279; 77061

== ENCOUNTER → 2024-05-16 | Outpatient (CLI) | payer MEDICARE, BC ==
[2024-05-16 15:19] LABS: BUN/Creat Ratio 20.38 Ratio (12.00-20.00); Blood Urea Nitrogen 16.3 mg/dL (9.0-27.0); Chloride 94 mmol/L (96-109); Glucose 115 mg/dL (70-110); Potassium 3.7 mmol/L (3.5-5.5); Sodium 136 mmol/L (135-145)
[2024-05-16 16:11] LABS: Basophils # (A) 0.05 X 10*3/uL (0.00-0.10); Basophils % (A) 0.8 %; Eosinophils # (A) 0.13 X 10*3/uL (0.04-0.35); HCT 46.9 % (37.2-46.3); HGB 15.9 g/dL (12.0-15.0); Lymphocytes # (A) 2.46 X 10*3/uL (0.90-5.00); Lymphocytes % (A) 37.4 %; MCH 29.4 pg (27.0-32.0); MCHC 33.9 g/dL (32.0-37.0); MCV 86.9 FL (80.0-97.0); Mean Platelet Volume 10.1 FL (9.5-12.2); Monocytes # (A) 0.57 X 10*3/uL (0.20-1.00); Monocytes % (A) 8.7 %; NRBC Per 100 WBC 0 X 10*3/uL (0.00-0.01); Neutrophils # (A) 3.35 X 10*3/uL (1.80-7.70); Neutrophils % (A) 50.8 %; Platelet Count 331 X 10*3/uL (140-440); RBC Morphology Normal (Normal); RDW 13.5 % (11.5-14.5); WBC 6.58 X 10*3/uL (4.50-10.00)
[2024-05-16 19:49] LABS: INR 0.97 sec (0.93-1.11); Prothrombin Time 10.9 sec (9.9-11.9)
== END | disposition home or self-care (01) ==
LOC: LABPAT 09:58
PROVIDERS: ATTEND Orthopaedic Surgery
DX: Z01.818 Encounter for other preprocedural examination (principal); M16.12 Unilateral primary osteoarthritis, left hip; R94.31 Abnormal electrocardiogram [ECG] [EKG]
CPT/HCPCS: 80048; 85025; 85610; 86850; 86900; 86901; 87070; 93005

== ENCOUNTER → 2024-05-18 | Outpatient (CLI) | payer MEDICARE, BC | END | disposition home or self-care (01) | LOC: LABPAT 14:03 | PROVIDERS: ATTEND Orthopaedic Surgery | DX: Z01.812 Encounter for preprocedural laboratory examination (principal) | CPT/HCPCS: 86850; 86900; 86901 ==

== ENCOUNTER 2024-05-29 05:57 | Day surgery (SDC) | payer MEDICARE, BC ==
[2024-05-24 15:23] VITALS: BMI 29.7
--- NOTE | 2024-05-28 12:14 | HP ---
HISTORY AND PHYSICAL DATE OF SURGERY: 05/29/2024 HISTORY OF PRESENT ILLNESS: Kandice Adames is a 73-year-old patient seen with symptomatic left hip osteoarthritis. We discussed options regarding treatment. She elected to proceed with left total hip arthroplasty via direct anterior approach. Consent regarding the procedure was obtained. PAST MEDICAL HISTORY: Hypertension. PAST SURGICAL HISTORY: Knee arthroscopy, tonsillectomy. DAILY MEDICATIONS: 1. Omeprazole. 2. Losartan. 3. Vitamins. ALLERGIES: Penicillin. SOCIAL HISTORY: She denies tobacco use. PHYSICAL EVALUATION OF LEFT HIP: She has very limited range of motion with severe pain. Positive hip impingement sign. Straight-leg raise negative. Distal neurovascular exam is intact. IMAGING: Radiographs of the left hip reveals severe osteoarthritic changes. IMPRESSION: 1. Left hip osteoarthritis. 2. Hypertension. PLAN: Direct anterior approach, left total hip arthroplasty. MMODL / IJN: [id number] /
[~2024-05-29 05:57] MED LIST: TRANEXAMIC 1,000 MG/100ML-NACL 1,000 MG in SALINE 1 100ML.BAG IVPB PRN
[2024-05-29] MEDS ORDERED: fentaNYL (PF) 50 MCG/ML 2 ML AMP IVP PRN (06:13)
[2024-05-29] MEDS: LACTATED RINGERS 1,000 ML IV SCH (06:40)
[2024-05-29] MEDS: LIDOCAINE 1% (10MG/ML) FOR IV START INTRADERMA PRN (06:40)
[2024-05-29] MEDS: IV FLUID CONTINUATION 1,000 ML IV ONE ×2 (06:40→10:23)
[2024-05-29] MEDS: ACETAMINOPHEN TAB 500 MG TAB PO PRN (06:53)
[2024-05-29] MEDS: DEXAMETHASONE SOD PHOSPHATE 4 MG/ML 1 ML VIAL IV ONE (06:53)
[2024-05-29] MEDS: ONDANSETRON 4 MG/2 ML VIAL IVP ONE (06:53)
[2024-05-29] MEDS: MELOXICAM 7.5 MG TAB PO PRN (06:53)
[2024-05-29] MEDS: MIDAZOLAM 2 MG/2 ML VIAL IV PRN (07:13)
[2024-05-29] MEDS ORDERED: HYDROmorphone (PF) 1 MG/ML ONE (07:23)
[2024-05-29] MEDS ORDERED: ROPIVACAINE 5 MG/ML 30 ML VIAL ONE (07:23)
[2024-05-29] MEDS ORDERED: PHENYLEPHRINE-0.9% NACL SYG 1,000 MCG/10 ML SYRINGE ONE (07:23)
[2024-05-29] MEDS ORDERED: fentaNYL (PF) 50 MCG/ML 2 ML AMP ONE (07:23)
[2024-05-29] MEDS ORDERED: ROCURONIUM 10 MG/ML (5 ML VIAL) IV ONE (07:23)
[2024-05-29] MEDS ORDERED: LIDOCAINE 1% INJ 10MG/ML (20 ML MDV) ONE (07:23)
[2024-05-29] MEDS ORDERED: GLYCOPYRROLATE 0.2 MG/ML 2 ML VIAL ONE (07:23)
[2024-05-29] MEDS ORDERED: TRANEXAMIC 1,000 MG/100ML-NACL PREMIX BAG ONE (07:23)
[2024-05-29] MEDS ORDERED: SUCCINYLCHOLINE CHLORIDE 200 MG/10 ML VIAL IV ONE (07:23)
[2024-05-29] MEDS ORDERED: PROPOFOL 10 MG/ML 20 ML VIAL IV ONE (07:23)
[2024-05-29] MEDS ORDERED: KETAMINE HCL IN 0.9 % NACL 50 MG/5 ML SYRINGE ONE (07:23)
[2024-05-29] MEDS ORDERED: NEOSTIGMINE 1 MG/ML 10 ML VIAL ONE (07:23)
[2024-05-29] MEDS: LACTATED RINGERS 1,000 ML IV ONE ×2 (08:59→10:22)
[2024-05-29] MEDS: ceFAZolin 1,000 MG in SODIUM CHLORIDE 0.9% 1,000 ML IRRIGATION ONE (08:59)
[2024-05-29] MEDS ORDERED: NALOXONE 0.4 MG/ML 1 ML VIAL IV PRN (09:16)
[2024-05-29] MEDS ORDERED: ONDANSETRON 4 MG/2 ML VIAL IVP PRN (09:16)
[2024-05-29] MEDS ORDERED: HYDROcodone/APAP 5-325MG 1 EACH TAB PO PRN (09:16)
[2024-05-29] MEDS ORDERED: HYDROmorphone 0.5 MG/0.5 ML SYRINGE IVP PRN ×3 (09:16)
--- NOTE | 2024-05-29 09:16 | P.OP ---
Date of Procedure: 05/29/24 Preoperative Diagnosis: Left hip osteoarthritis Postoperative Diagnosis: Left hip osteoarthritis Procedure(s) Performed: Direct anterior left total hip arthroplasty Implants: 1. DePuy [place] size 10 and 135 degree standard collared press-fit femoral stem 2. DePuy [place] 52 mm press-fit acetabular shell 3. DePuy [place] neutral polyethylene acetabular liner 36 mm ID 52 mm OD 4. Biolox delta ceramic femoral head +1.5 36 mm 5. Shara 1.8 mm cerclage cable with crimp Anesthesia: GETA, regional (Erector spinae block) Surgeon: Karl Zuleta Resource Economist #1: Miles Walters Estimated Blood Loss (ml): 45 Pathology: none sent Condition: stable Disposition: PACU Indications for Procedure: 73-year-old patient seen with symptomatic left hip osteoarthritis. After having treatment options discussed, she elected to proceed with direct anterior left total hip arthroplasty. Operative Findings: See description of procedure Description of Procedure: The patient was taken to the operative suite. Patient underwent a general anesthetic by the department of anesthesia. Patient was then transferred to the [place] table. Patient was given preoperative IV antibiotics and TXA. Both lower extremities were placed in standard leg spars. The hip was then prepped and draped in the normal sterile orthopedic fashion. A standard anterior incision was made beginning 3 cm lateral and 1 cm distal to the ASIS extending 10 cm. Dissection was then carried down through the subcutaneous soft tissues down to the fascia overlying the tensor fascia georgiana. An incision was now made through the fascia. Careful dissection was taken down exposing the tensor fascia georgiana muscle. A Cobra retractor was now placed along the medial femoral neck and a second one along the lateral femoral neck. The venous circumflex vessels were now identified, cauterized and clipped. We identified the anterior hip capsule. An incision was made through the hip capsule along the lateral border. I perfo rmed a partial anterior capsulectomy. Retractors were now placed around the femoral neck itself. A femoral neck cut was now made with a sagittal saw. It was completed with an osteotome at the lateral neck area. The femoral head was now removed without difficulty. The extremity was now rotated to 60 of external rotation. It was locked in position. Residual labrum was now debrided out. Serial reaming was performed of the acetabulum while Miles CROSS assisted holding an anterior retractor for exposure. Once we reached the appropriate size and a trial was position and fit nicely. The appropriate size was now chosen opened and made available. It was introduced into the acetabulum without difficulty. The C-arm/fluoroscopy was now brought into the operative field. We made sure we had a true AP pelvic view. We now under direct C- arm/fluoroscopy introduced into the acetabular component with appropriate version and inclination. I held the cup in appropriate position while Miles CROSS used a mallet to seat the acetabular component. I noted the component now to be well seated and stable. Acetabular cup introduce her was removed. The C-arm was pulled back. An appropriate liner was introduced and clicked into position. It was felt to be stable. At this point retractors were removed. The extremity was now placed into 140 external rotation with no traction. The leg was now dropped to the ground and adducted. Appropriate retractors were now positioned along the proximal femur. We also placed our femoral look into position. Additional capsular releasing was performed to gain access to the proximal femur. We now used a box osteotome. A canal finder was now utilized. Serial broaching was now performed with the assistance of Miles CROSS tapping the broaches down with a mallet while held the broach in appropriate rotation and position. At this point I did note a very small split in the central calcar area. I decided to place a prophylactic cable. The broach was removed. The extremity is elevated. I now placed a cable on the proximal calcar area and secured it crimping it including the cable loose. The cable seem to be well position. I now placed the extremity back into 140 degrees external rotation I was placed underneath the other extremity. Retractors were positioned. I now began serial broaching. The femoral component this was done until we reached the appropriate size with good overall rotational stability. Appropriate calcar planing was performed. A trial head/neck was placed into position. The hip was now reduced. The C-arm/fluoroscopy was brought back into the operative field. I obtained an AP pelvis that demonstrated adequate sizing of the components in adequate alignment of the components. The C-arm/fluoroscopy was pulled back. Retractors were repositioned and the hip was dislocated. The leg was again taken down to the ground and adducted. Appropriate retractors were repositioned as well as the femoral hook. All trial components were removed. The femoral implant was opened along with the femoral head. The femoral implant was introduced on the appropriate handle into our pre-broached area. I held the component position while Miles CROSS used a mallet to seat the femoral component. The femoral component was now noted to be well seated and stable.. The femoral head was introduced with good positioning and fixation noted. Retractors were now removed. The hip was now reduced. There appeared be good positioning of the hip confirmed on intraoperative fluoroscopy. Spot films were obtained to document this. A second gram of TXA was given. Bipolar cautery had been utilized intermittently through the procedure for hemostasis. The wound was irrigated copiously with pulse lavage mechanical irrigation. The fascia was repaired with Vicryl suture. The subcutaneous soft tissues were repaired in layers with Vicryl suture. The skin was approximated with pernio/Dermabond. Sterile dressings were applied. Patient was then awakened, transferred to a bed and taken to recovery in stable condition. Miles CROSS assisted with the complex procedure.
[2024-05-29 09:29] VITALS: TEMP 97.3
--- NOTE | 2024-05-29 09:45 | FL ---
EXAMINATION TYPE: FL guidance operating room, XR Hip Limited LT DATE OF EXAM: 05/29/2024 CLINICAL INDICATION: Female, 73 years old with history of LEFT ANTERIOR HIP, pain and osteoarthritis. TECHNIQUE: Fluoroscopy. Limited intraoperative views left hip. COMPARISON: Bilateral hip x-rays January 18, 2024. FINDINGS: Fluoroscopic guidance was provided during left hip replacement procedure performed by Dr. Zuleta. A total of 9 seconds of fluoroscopic time was utilized during the procedure and 2 spot im ages was acquired. Intraoperative images acquired show metallic hardware from total left hip arthroplasty satisfactory i n position on frontal projection. TOTAL DAP = 0.8509 Gy cm2. IMPRESSION: As Above. [facility], , 05/29/2024 9:43 AM
[2024-05-29] MEDS: HYDROmorphone 0.5 MG/0.5 ML SYRINGE IVP PRN (09:59)
[2024-05-29] MEDS: KETOROLAC 15 MG/ML 1 ML VIAL IVP STA (10:00)
[2024-05-29 10:41] VITALS: RESP 16
[2024-05-29] MEDS: HYDROcodone/APAP 7.5-325MG 1 EACH TAB PO PRN (11:37)
[2024-05-29 12:57] VITALS: BP 136/79; PULSE 98
--- NOTE | 2024-05-29 14:29 | P.ANPRN ---
Procedure Note - Anesthesia - Nerve Block Performed Left Willem Single Time Out Performed: Yes ([id number]) Date of Procedure: 05/29/24 Location of Patient: PreOp Indication: Acute Post-Operative Pain, Analgesia, Dx/Pain Location (left hip), Requested by Surgeon Specifically requested for management of pain by DrSharon: Karl Zuleta Sedation Type: Sedate with meaningful contact maintained Preparation: Sterile Prep Position: Supine Catheter: None Needle Types: Pajunk Needle Gauge: 21 Ultrasound used to visualize needle placement: Yes Ultrasound used to observe medication spread: Yes Injectate: 0.5% Ropivacaine (see comment for volume) (30 mL) Blood Aspirated: No Pain Paresthesia on Injection Noted: No Resistance on Injection: Normal Image Stored and Saved: Yes Events: Uneventful and Well Tolerated
== END 2024-05-29 13:20 | disposition home health service (06) ==
LOC: OR 05:57
PROVIDERS: ATTEND Orthopaedic Surgery
DX: M16.12 Unilateral primary osteoarthritis, left hip (principal); G89.18 Other acute postprocedural pain; I10 Essential (primary) hypertension; Z88.0 Allergy status to penicillin
CPT/HCPCS: 97161; 64999; 73501; 27130; C1713; C1776; J2250; J1100; J0690 ×2; J2405; J1885; J1171

== ENCOUNTER → 2024-10-03 | Outpatient (CLI) | payer MEDICARE, BC ==
[2024-10-03 11:09] VITALS: BP 144/88; PULSE 104; RESP 16; TEMP 98.1
--- NOTE | 2024-10-03 11:21 | P.HPOB ---
History of Present Illness H&P Date: 10/03/24 Chief Complaint: The patient is here for her routine gynecologic exam and ma mmogram. This is a 73-year-old -0-1-2 with an LMP of 2003. The patient is without gynecologic complaints. Review of Systems The patient's weight has been stable over the last year. She denies respiratory, cardiac, or G.I. problems. Past Medical History Past Medical History: GERD/Reflux, Hyperlipidemia, Hypertension, Thyroid Disorder Additional Past Medical History / Comment(s): Hypercalcemia with parathyroid problems. History of osteopenia. Gout. 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 She did have a conization of the cervix in the late s. History of Any Multi-Drug Resistant Organisms: None Reported Past Surgical History: Orthopedic Surgery, Tonsillectomy Additional Past Surgical History / Comment(s): right knee, D&C. Cervical conization in the . Colonoscopy 2020(next after 5yr). Past Psychological History: No Psychological Hx Reported Smoking Status: Never smoker Past Alcohol Use History: Occasional Past Drug Use History: None Reported Additional History: She has been since 1969 and is retired. She regularly visits her daughter in [place]. - Past Family History Father Family Medical History: Myocardial Infarction ([place]) Additional Family Medical History / Comment(s): The paternal aunt had uterine cancer. Mother Family Medical History: Cancer Additional Family Medical History / Comment(s): Breast and colon cancer. Brother(s) Family Medical History: Cancer Additional Family Medical History / Comment(s): Lung cancer. Medications and Allergies Home Medications Medication Instructions Recorded Confirmed Type Omeprazole [PriLOSEC] 20 mg PO Q2D 11/24/13 10/03/24 History Calcium Carbonate/Vitamin D3 2 dose PO HS 01/25/18 10/03/24 History [Calcium 500-Vit D3 200 Tablet] Chlorthalidone 25 mg PO DAILY 09/16/21 10/03/24 History Losartan Potassium 50 mg PO DAILY 05/24/24 10/03/24 History Pravastatin Sodium [Pravachol] 40 mg PO QAM 05/24/24 10/03/24 History allopurinoL [Zyloprim] 100 mg PO DAILY 10/03/24 10/03/24 History Allergies Allergy/AdvReac Type Severity Reaction Status Date / Time Penicillins Allergy Unknown Rash/Hives Verified 10/03/24 10:57 Exam Vital Signs Temp Pulse Resp BP Pulse Ox 10/03/24 11:03 98.1 F 104 H 16 144/88 95 Intake and Output 10/02/24 10/03/24 10/03/24 22:59 06:59 14:59 Other: Weight 74.843 kg Height 5 feet 1 inch, weight 165 pounds, BMI 31.2. This is a well-developed well-nourished white female who is alert and oriented times 3 in no acute distress. HEENT: Within normal limits. NECK: Supple without mass or thyromegaly. CHEST AND LUNGS: Clear to auscultation. HEART: Regular rate and rhythm. BREASTS: Are without mass or discharge. AXILLARY EXAM: Negative for adenopathy. BACK: Negative for CVA tenderness. ABDOMEN: Soft, nontender, without palpable masses. PELVIC EXAM: Normal external genitalia mild atrophy. Cervix and vagina appear normal with mild atrophy. There is no unusual discharge. There is no evidence of prolapse. The uterus is midposition, nongravid size and nontender. There are no palpable adnexal masses or tenderness. RECTAL EXAM: Rectovaginal exam is negative for mass or tenderness and is negati ve for occult blood. EXTREMITIES: Nontender. IMPRESSION: 1. 73-year-old menopausal female with normal gynecologic exam. 2. History of osteopenia PLAN: 1. Pap smears have been discontinued. 2. Self breast awareness was discussed with the patient. We have also discussed symptoms associated with inflammatory breast cancer. 3. Patient did not do the left diagnostic mammogram as recommended in March 2024. Bilateral diagnostic mammogram will be done today. 4. Osteoporosis prevention was discussed. I have stressed the importance of adequate calcium, vitamin D and regular exercise. Recommended amounts of calcium and vitamin D were also discussed. She is declining bone density testing this year. We will plan on repeating the bone density test in 1 year. 5. She was advised to return in one year for her annual well woman exam.
--- NOTE | 2024-10-03 15:28 | MM ---
Reason for Exam: Follow-up at short interval from prior study. Last screening mammogram was performed 12 month(s) ago. Patient History: Menarche at age 11. First Full-Term at age 20. Postmenopausal. Patient has history of breast feeding. Hormonal Contraceptives for 8 years from age 20 until age 28. Paternal aunt had breast cancer, age 40. Mother had breast cancer, age 40. Risk Values: Kimym 5 year model risk: 3.4%. NCI Lifetime model risk: 7.7%. Prior Study Comparison: 08/24/2017 Left Diagnostic Mammogram, [facility]. 01/25/2018 Bilateral Screening Mammogram, [facility]. 02/15/2019 Bilateral Screening Mammogram, [facility]. 09/11/2020 Bilateral Screening Mammogram, [facility]. 09/16/2021 Bilateral MG 3D screening mammo w/cad, [facility]. 09/23/2022 Bilateral MG 3D screening mammo w/cad, [facility]. 09/28/2023 Bilateral MG 3D screening mammo w/cad, [facility]. 10/08/2023 Left MG 3D work up w/cad LT, [facility]. Tissue Density: The breasts are heterogeneously dense, which may obscure small masses. Findings: Analyzed By CAD. No evidence for mass or distortion. No suspicious microcalcifications. Overall Assessment: Negative, BI-RAD 1 Management: Screening Mammogram of both breasts in 1 year. . Results were given to the patient verbally at the time of exam. Patient should continue monthly self-breast exams. A clinical breast exam by your physician is recommended on an annual basis. This exam should not preclude additional follow-up of suspicious palpable abnormalities. Note on Kimmy scores and lifetime risk: 1. A Kimmy score greater than 3% is considered moderate risk. If this is the case, consider specialist referral to assess eligibility for a risk reducing agent. 2. If overall lifetime risk for the development of breast cancer is 20% or higher, the patient may qualify for future screening with alternating mammogram and breast MRI. [facility], , 10/03/2024 3:25 PM. Electronically signed and approved by: Diaz Prieto M.D. Radiologis
== END ==
LOC: WWCWWP 10:39
PROVIDERS: ATTEND Obstetrics & Gynecology
DX: Z01.419 Encounter for gynecological examination (general) (routine) without abnormal findings (principal); Z12.31 Encounter for screening mammogram for malignant neoplasm of breast; Z78.0 Asymptomatic menopausal state; Z87.39 Personal history of other diseases of the musculoskeletal system and connective tissue; Z88.0 Allergy status to penicillin
CPT/HCPCS: 77066; G0279; 77062